=== PATIENT | female | born 1985 | race Caucasian/White ===

== ENCOUNTER 2018-01-08 10:18 | Emergency (ER) | payer MEDICAID ==
[~2018-01-08] VITALS: Ht 172.7 cm; Wt 123.8 kg
[2018-01-08] MEDS ORDERED: SODIUM CHLORIDE 0.9% 1,000 ML IV ONE (11:36)
[2018-01-08] MEDS ORDERED: SODIUM CHLORIDE 0.9% 1,000ML IVBOLUS ONE (12:00)
[2018-01-08] MEDS ORDERED: HYDROmorphone 2 MG/ML, 1ML IVPush PRN (12:00)
[2018-01-08] MEDS ORDERED: ONDANSETRON 2MG/ML, 2ML IVPush ONE (12:00)
[2018-01-08] MEDS ORDERED: SODIUM CHLORIDE FLUSH 10ML SYR IVF ONE (12:00)
[2018-01-08 12:06] LABS: MICROSCOPIC AUTO
[2018-01-08 12:07] LABS: CULTURE INDICATED? NO
[2018-01-08 12:13] LABS: BASOPHILS # (AUTO) 0.03 x10^3/uL (0-0.1); BASOPHILS % (AUTO) 0 % (0-1); EOSINOPHILS # (AUTO) 0.13 x10^3/uL (0-0.4); EOSINOPHILS % (AUTO) 2 % (1-7); LYMPHOCYTES # (AUTO) 1.45 x10^3/uL (1-3.4); LYMPHOCYTES % (AUTO) 23 % (22-44); MD NO; MEAN CORPUSCULAR HEMOGLOBIN 29.6 pg (27.0-34.8); MEAN CORPUSCULAR VOLUME 89.5 fL (80-100); MEAN PLATELET VOLUME 8.7 fL (7.4-10.4); MONOCYTES # (AUTO) 0.35 x10^3/uL (0.2-0.8); MONOCYTES % (AUTO) 6 % (2-9); NEUTROPHILS # (AUTO) 4.25 x10^3/uL (1.8-6.8); NEUTROPHILS % (AUTO) 69 % (42-75); PLATELET COUNT 260 x10^3/uL (130-400); RED BLOOD COUNT 4.57 x10^6/uL (3.82-5.3); RED CELL DISTRIBUTION WIDTH 14.2 % (9.6-15.2)
[2018-01-08] MEDS ORDERED: HYDROmorphone 2 MG/ML, 1ML ONE (12:17)
[2018-01-08] MEDS ORDERED: ONDANSETRON 2MG/ML, 2ML ONE (12:17)
[2018-01-08 12:21] LABS: ACETONE, SERUM Negative (Negative)
[2018-01-08 12:23] LABS: ALANINE AMINOTRANSFERASE 22 U/L (12-78); ALBUMIN 3.5 g/dL (3.4-5.0); ANION GAP 5 mmol/L (5-15); CALCIUM 8.7 mg/dL (8.5-10.1); CHLORIDE 110 mmol/L (98-107); CREATININE 0.59 mg/dL (0.55-1.02)
[2018-01-08 12:25] LABS: ALKALINE PHOSPHATASE 84 U/L (45-117); BILIRUBIN,TOTAL 0.6 mg/dL (0.2-1.0); TOTAL PROTEIN 7.3 g/dL (6.4-8.2)
[2018-01-08 13:37] VITALS: BP 98/64
== END 2018-01-08 13:41 | disposition home or self-care (01) ==
LOC: ED 13:35
DX: K52.9 Noninfective gastroenteritis and colitis, unspecified (principal); Z90.49 Acquired absence of other specified parts of digestive tract; Z98.890 Other specified postprocedural states; Z98.51 Tubal ligation status
CPT/HCPCS: 36415; 74021; 80053; 81001; 82010; 83690; 85025; 96361; 96374; 96375; 99284; J1170; J2405; J7030

== ENCOUNTER 2018-08-03 12:43 | Emergency (ER) | payer SELFPAY ==
[~2018-08-03] VITALS: Ht 172.7 cm; Wt 114.1 kg
--- NOTE | 2018-08-03 13:11 | NUR ---
CT WAITING ON IV TO PERFORM EXAM.
[2018-08-03 13:30] LABS: BASOPHILS % (AUTO) 0 % (0-1); EOSINOPHILS # (AUTO) 0.44 x10^3/uL (0-0.4); EOSINOPHILS % (AUTO) 5 % (1-7); LYMPHOCYTES # (AUTO) 1.62 x10^3/uL (1-3.4); LYMPHOCYTES % (AUTO) 17 % (22-44); MD NO; MEAN CORPUSCULAR HEMOGLOBIN 31.1 pg (27.0-34.8); MEAN CORPUSCULAR HGB CONC 33.3 g/dL (32.4-35.8); MEAN CORPUSCULAR VOLUME 93.5 fL (80-100); MEAN PLATELET VOLUME 9.9 fL (7.4-10.4); MONOCYTES # (AUTO) 0.17 x10^3/uL (0.2-0.8); MONOCYTES % (AUTO) 2 % (2-9); NEUTROPHILS # (AUTO) 7.18 x10^3/uL (1.8-6.8); NEUTROPHILS % (AUTO) 76 % (42-75); PLATELET COUNT 246 x10^3/uL (130-400); RED BLOOD COUNT 4.81 x10^6/uL (3.82-5.3); RED CELL DISTRIBUTION WIDTH 13.7 % (9.6-15.2)
[2018-08-03 13:32] LABS: ALANINE AMINOTRANSFERASE 21 U/L (12-78); ALBUMIN 3.4 g/dL (3.4-5.0); ANION GAP 4 mmol/L (5-15); CALCIUM 8.9 mg/dL (8.5-10.1); CHLORIDE 113 mmol/L (98-107); CREATININE 0.61 mg/dL (0.55-1.02)
[2018-08-03 13:36] LABS: ALKALINE PHOSPHATASE 80 U/L (45-117); BILIRUBIN,TOTAL 0.4 mg/dL (0.2-1.0); TOTAL PROTEIN 7.1 g/dL (6.4-8.2)
[2018-08-03] MEDS ORDERED: SODIUM CHLORIDE 0.9% 1,000 ML IV ONE (14:22)
--- NOTE | 2018-08-03 14:22 | NUR ---
PT TO ED FOR RIGHT SIDED ABD PAIN X3 DAYS WITH ASSOCIATED N/V. CONNECTED TO MONITORS. VSS. EDMD PRESENT FOR ASSESSMENT. AWAITING ORDERS.
[2018-08-03] MEDS ORDERED: HYDROmorphone 2 MG/ML, 1ML IVPush PRN (14:30)
[2018-08-03] MEDS ORDERED: SODIUM CHLORIDE FLUSH 10ML SYR IVF ONE (14:30)
[2018-08-03] MEDS ORDERED: SODIUM CHLORIDE 0.9% 1,000ML IVBOLUS ONE (14:30)
[2018-08-03] MEDS ORDERED: ONDANSETRON 2MG/ML, 2ML IVPush ONE (14:30)
[2018-08-03] MEDS ORDERED: ONDANSETRON 2MG/ML, 2ML ONE (14:36)
[2018-08-03] MEDS ORDERED: HYDROmorphone 1 MG/ML, 1ML VIAL ONE (14:36)
--- NOTE | 2018-08-03 14:40 | NUR ---
iv established. pt medicated per apr. vss. pt to ct at this time.
[2018-08-03 14:45] LABS: CULTURE INDICATED? YES; MICROSCOPIC INDICATED
[2018-08-03] MEDS ORDERED: OMNIPAQUE 350 MG/ML, 100ML BOTTLE ONE (15:00)
[2018-08-03] MEDS ORDERED: PROMETHAZINE 25 MG/ML, 1ML ONE (15:26)
[2018-08-03] MEDS ORDERED: PROMETHAZINE 25 MG/ML, 1ML IM ONE (15:30)
[2018-08-03 15:32] VITALS: BP 105/58
--- NOTE | 2018-08-03 15:33 | NUR ---
pt medicated per mar for nausea. vss. all results back at this time. chart up for recheck.
== END 2018-08-03 15:49 | disposition home or self-care (01) ==
LOC: ED 15:27
DX: K52.9 Noninfective gastroenteritis and colitis, unspecified (principal); N30.00 Acute cystitis without hematuria; F17.210 Nicotine dependence, cigarettes, uncomplicated; Z90.49 Acquired absence of other specified parts of digestive tract
CPT/HCPCS: 36415; 74177; 80053; 81001; 84703; 85025; 87086; 87147; 96361; 96372; 96374; 96375; 99284; J1170; J2405; J2550; J7030; Q9967

== ENCOUNTER 2018-08-27 07:25 | Emergency (ER) | payer SELFPAY ==
[~2018-08-27] VITALS: Ht 172.7 cm; Wt 115.3 kg
--- NOTE | 2018-08-27 07:46 | NUR ---
PT HAS CO OF SUNBURN OF LOWER LEGS W BLISTERS. PT STATES " I HAVE BEEN PASSING OUT AND VOMITING, DIARREHEA. I CANT KEEP ANYTHING DOWN SINCE YESTERDAY"
[2018-08-27] MEDS ORDERED: SODIUM CHLORIDE FLUSH 10ML SYR IVF ONE (08:00)
[2018-08-27] MEDS ORDERED: FAMOTIDINE 20 MG/2 ML IVP ONE (08:00)
[2018-08-27] MEDS ORDERED: ONDANSETRON 2MG/ML, 2ML IVPush ONE ×2 (08:00→11:00)
[2018-08-27] MEDS ORDERED: SODIUM CHLORIDE 0.9% 1,000ML IVBOLUS ONE (08:00)
[2018-08-27 08:08] LABS: BASOPHILS # (AUTO) 0.06 x10^3/uL (0-0.1); BASOPHILS % (AUTO) 1 % (0-1); EOSINOPHILS # (AUTO) 0.28 x10^3/uL (0-0.4); EOSINOPHILS % (AUTO) 3 % (1-7); LYMPHOCYTES # (AUTO) 1.39 x10^3/uL (1-3.4); LYMPHOCYTES % (AUTO) 13 % (22-44); MD NO; MEAN CORPUSCULAR HEMOGLOBIN 30.5 pg (27.0-34.8); MEAN CORPUSCULAR HGB CONC 32.9 g/dL (32.4-35.8); MEAN CORPUSCULAR VOLUME 92.8 fL (80-100); MEAN PLATELET VOLUME 8.8 fL (7.4-10.4); MONOCYTES # (AUTO) 0.74 x10^3/uL (0.2-0.8); MONOCYTES % (AUTO) 7 % (2-9); NEUTROPHILS # (AUTO) 8.12 x10^3/uL (1.8-6.8); NEUTROPHILS % (AUTO) 77 % (42-75); PLATELET COUNT 215 x10^3/uL (130-400); RED BLOOD COUNT 5.17 x10^6/uL (3.82-5.3); RED CELL DISTRIBUTION WIDTH 14.6 % (9.6-15.2)
[2018-08-27] MEDS ORDERED: ONDANSETRON 2MG/ML, 2ML ONE ×2 (08:18→10:44)
[2018-08-27] MEDS ORDERED: FAMOTIDINE 20 MG/2 ML ONE (08:18)
[2018-08-27 08:21] LABS: ALANINE AMINOTRANSFERASE 34 U/L (12-78); ALBUMIN 3.3 g/dL (3.4-5.0); ANION GAP 9 mmol/L (5-15); CALCIUM 8.7 mg/dL (8.5-10.1); CHLORIDE 108 mmol/L (98-107)
[2018-08-27 08:26] LABS: ALKALINE PHOSPHATASE 82 U/L (45-117); TOTAL PROTEIN 7.3 g/dL (6.4-8.2)
--- NOTE | 2018-08-27 09:14 | NUR ---
PT REQUESTING PAIN MEDICATION FOR SUNBURN
[2018-08-27] MEDS ORDERED: HYDROmorphone 2 MG/ML, 1ML ONE (09:24)
[2018-08-27] MEDS ORDERED: HYDROmorphone 2 MG/ML, 1ML IVPush PRN (09:30)
[2018-08-27 09:32] VITALS: BP 108/69
--- NOTE | 2018-08-27 11:16 | NUR ---
Patient given discharge instructions and they have confirmed that they understand the instructions. Patient ambulatory with steady gait.
--- NOTE | 2018-08-27 11:17 | NUR ---
PT STATES HER PAIN IS 4/10, NAUSEA IS BETTER.
== END 2018-08-27 11:31 | disposition home or self-care (01) ==
LOC: ED 09:22
DX: R55 Syncope and collapse (principal); R11.2 Nausea with vomiting, unspecified; T24.212A Burn of second degree of left thigh, initial encounter; T31.0 Burns involving less than 10% of body surface; T24.122A Burn of first degree of left knee, initial encounter; T24.121A Burn of first degree of right knee, initial encounter; T24.111A Burn of first degree of right thigh, initial encounter; T21.11XA Burn of first degree of chest wall, initial encounter; T31.20 Burns involving 20-29% of body surface with 0% to 9% third degree burns; X08.8XXA Exposure to other specified smoke, fire and flames, initial encounter; Y93.89 Activity, other specified; Y92.89 Other specified places as the place of occurrence of the external cause; Y99.8 Other external cause status
CPT/HCPCS: 36415; 71045; 80053; 84703; 85025; 93005; 96361; 96374; 96375; 96376; 99284; J1170; J2405; J3490; J7030

== ENCOUNTER 2020-04-12 08:27 | Emergency (ER) | payer MEDICAID ==
[~2020-04-12] VITALS: Ht 172.7 cm; Wt 122.6 kg
--- NOTE | 2020-04-12 08:33 | NUR ---
assistant technician: EKG done in triage
--- NOTE | 2020-04-12 08:49 | NUR ---
PT STATES SHE HAS HAD EPIGASTRIC PAIN FOR 3 DAYS WITH VOMITING. PT BELIEVES IT IS PANCREATITIS STATING SHE GETS IT 3 TIMES A YEAR
[2020-04-12] MEDS ORDERED: ONDANSETRON 2MG/ML, 2ML IVPush ONE (09:30)
[2020-04-12] MEDS ORDERED: SODIUM CHLORIDE 0.9% 1,000ML IVBOLUS ONE (09:30)
[2020-04-12] MEDS ORDERED: HYDROmorphone 1 MG/ML, 1ML INJ IV ONE (09:30)
[2020-04-12] MEDS ORDERED: SODIUM CHLORIDE FLUSH 10ML SYR IVF ONE (09:30)
[2020-04-12] MEDS ORDERED: HYDROmorphone 1 MG/ML, 1ML INJ ONE ×2 (09:35→10:35)
[2020-04-12] MEDS ORDERED: ONDANSETRON 2MG/ML, 2ML ONE (09:35)
--- NOTE | 2020-04-12 09:38 | NUR ---
break rn: pain 8/10 bilateral upper quadrant. medicated for pain. ultrasound in progress
[2020-04-12 09:55] LABS: BASOPHILS % (AUTO) 1 % (0-1); EOSINOPHILS % (AUTO) 3 % (1-7); LYMPHOCYTES % (AUTO) 24 % (22-44); MEAN CORPUSCULAR HGB CONC 33.8 g/dL (32.4-35.8); MEAN PLATELET VOLUME 9.4 fL (7.4-10.4); MONOCYTES % (AUTO) 6 % (2-9); NEUTROPHILS % (AUTO) 65 % (42-75); PLATELET COUNT 226 x10^3/uL (130-400); RED CELL DISTRIBUTION WIDTH 13.8 % (9.6-15.2)
[2020-04-12 09:58] LABS: ALBUMIN 3.3 g/dL (3.4-5.0); ANION GAP 5 mmol/L (5-15); CALCIUM 8.4 mg/dL (8.5-10.1); CHLORIDE 113 mmol/L (98-107)
[2020-04-12 09:59] LABS: MD NO
[2020-04-12 10:03] LABS: ALANINE AMINOTRANSFERASE 25 U/L (12-78); ALKALINE PHOSPHATASE 68 U/L (45-117); BILIRUBIN,TOTAL 0.5 mg/dL (0.2-1.0); CREATININE 0.57 mg/dL (0.55-1.02); TOTAL PROTEIN 6.5 g/dL (6.4-8.2)
--- NOTE | 2020-04-12 10:27 | NUR ---
ULTRASOUND COMPLETED. PT CONTINUES TO HAVE ABDOMINAL PAIN DESPITE BEING MEDICATED
[2020-04-12] MEDS ORDERED: HYDROmorphone 2 MG/ML, 1ML IVPush ONE (10:30)
[2020-04-12 11:08] VITALS: BP 126/64
--- NOTE | 2020-04-12 11:09 | NUR ---
SOME RELIEF WITH SECOND DOSE OF IV PAIN MEDS. TO GLASS ENAMEL MIXER PT. DISCHARGE INSTRUCTIONS GIVEN AND AMBULATED TO DISCHARGE WINDOW STEADY GAIT
== END 2020-04-12 11:13 | disposition home or self-care (01) ==
LOC: ED 08:46
DX: R10.13 Epigastric pain (principal); R11.2 Nausea with vomiting, unspecified; R19.7 Diarrhea, unspecified; E66.9 Obesity, unspecified; Z68.41 Body mass index [BMI] 40.0-44.9, adult; Z90.49 Acquired absence of other specified parts of digestive tract; Z98.51 Tubal ligation status; Z79.899 Other long term (current) drug therapy
CPT/HCPCS: 36415; 76700; 80053; 83690; 84703; 85025; 93005; 96361; 96374; 96375; 96376; 99285; J1170; J2405; J7030

== ENCOUNTER 2020-08-23 08:52 | Inpatient (IN) | payer MEDICAID ==
[~2020-08-23] VITALS: Ht 172.7 cm; Wt 116.5 kg
--- NOTE | 2020-08-23 09:32 | NUR ---
Hx of acute pancreatitis. N/V/D starting last night, reports pain in upper abd. "I'm pretty sure it's my pancreas." appears well. vss will defer piv until erp assess
[2020-08-23] MEDS ORDERED: ONDANSETRON 2MG/ML, 2ML ONE (09:56)
[2020-08-23] MEDS ORDERED: HYDROmorphone 1 MG/ML, 1ML INJ ONE ×3 (09:56→13:06)
[2020-08-23] MEDS ORDERED: ONDANSETRON 2MG/ML, 2ML IVPush ONE (10:00)
[2020-08-23] MEDS ORDERED: SODIUM CHLORIDE FLUSH 10ML SYR IVF ONE (10:00)
[2020-08-23] MEDS ORDERED: HYDROmorphone 1 MG/ML, 1ML INJ IV ONE ×3 (10:00→12:30)
[2020-08-23] MEDS ORDERED: SODIUM CHLORIDE 0.9% 1,000ML IVBOLUS ONE (10:00)
--- NOTE | 2020-08-23 10:17 | NUR ---
PIV PLACED-MEDICATED PER EMAR FOR EPIGASTRIC PAIN AT 09/20
[2020-08-23 10:55] LABS: BASOPHILS % (AUTO) 1 % (0-1); EOSINOPHILS % (AUTO) 2 % (1-7); LYMPHOCYTES % (AUTO) 16 % (22-44); MEAN CORPUSCULAR HEMOGLOBIN 31.9 pg (27.0-34.8); MEAN CORPUSCULAR HGB CONC 34.4 g/dL (32.4-35.8); MEAN PLATELET VOLUME 9.5 fL (7.4-10.4); MONOCYTES % (AUTO) 7 % (2-9); NEUTROPHILS % (AUTO) 75 % (42-75); PLATELET COUNT 276 x10^3/uL (130-400); RED BLOOD COUNT 4.93 x10^6/uL (3.82-5.3); RED CELL DISTRIBUTION WIDTH 13.5 % (9.6-15.2)
[2020-08-23 10:59] LABS: ALANINE AMINOTRANSFERASE 32 U/L (12-78); ALBUMIN 3.7 g/dL (3.4-5.0); CALCIUM 9.2 mg/dL (8.5-10.1); CHLORIDE 109 mmol/L (98-107); CREATININE 0.72 mg/dL (0.55-1.02)
[2020-08-23 11:09] LABS: ANION GAP 3 mmol/L (5-15)
[2020-08-23 11:10] LABS: ALKALINE PHOSPHATASE 72 U/L (45-117); BILIRUBIN,TOTAL 0.9 mg/dL (0.2-1.0); TOTAL PROTEIN 7.5 g/dL (6.4-8.2)
--- NOTE | 2020-08-23 11:12 | NUR ---
ALL TESTING RESULTED-PLACED UP FOR RECHECK PATIENT REPORTS PAIN ONLY SLIGHT IMPROVED 7/10. HOWEVER PAIN APPEARS MUCH MORE COMFORTABLE (SLEEPING OR USING PHONE, ETC)
[2020-08-23] MEDS ORDERED: SODIUM CHLORIDE 0.9% 1,000 ML IV ONE (11:30)
--- NOTE | 2020-08-23 11:44 | NUR ---
medicated per emar with 2nd dose of pain meds and 2nd liter of ns
[2020-08-23] MEDS ORDERED: BACL-19 PO (12:14)
[2020-08-23] MEDS ORDERED: ALPR1TAB2 PO (12:14)
[2020-08-23] MEDS ORDERED: NAPR-856 PO (12:14)
[2020-08-23] MEDS ORDERED: PROCHLORPERAZINE 5 MG/ML, 2ML ONE (13:05)
--- NOTE | 2020-08-23 13:14 | NUR ---
remedicated for continued pain/nausea
[2020-08-23] MEDS ORDERED: LACTATED RINGERS 1,000 ML IV SCH (13:30)
[2020-08-23] MEDS ORDERED: POLYETHYLENE GLYCOL 17 GM PACKET PO PRN (13:30)
[2020-08-23] MEDS ORDERED: SENNA/DOCUSATE TABLET PO PRN (13:30)
[2020-08-23] MEDS ORDERED: PROMETHAZINE 25 MG/ML, 1ML IM PRN (13:30)
[2020-08-23] MEDS ORDERED: PROCHLORPERAZINE 5 MG/ML, 2ML IVPush ONE (13:30)
[2020-08-23] MEDS ORDERED: ACETAMINOPHEN 325 MG TABLET PO PRN (13:30)
--- NOTE | 2020-08-23 13:57 | NUR ---
ULTRASOUND AT BEDSIDE FOR ABD EXAM
[2020-08-23] MEDS ORDERED: ALPRazolam 1MG TAB PO PRN (14:00)
[2020-08-23] MEDS ORDERED: PROCHLORPERAZINE 5 MG/ML, 2ML IV PRN (14:00)
[2020-08-23] MEDS ORDERED: NAPROXEN 500 MG TABLET PO PRN (14:00)
[2020-08-23] MEDS ORDERED: ENOXAPARIN 40 MG/0.4 ML SQ SCH (14:30)
[2020-08-23] MEDS: HYDROmorphone 1 MG/ML, 1ML INJ IVPush PRN ×2 (14:46→19:28)
[2020-08-23 15:59] VITALS: BP 101/65
[2020-08-23 18:29] VITALS: BP 95/62
== END 2020-08-23 20:09 | disposition left against medical advice (07) | DRG 392 ==
LOC: ED 11:06 → EDIP 12:46 → 3N 14:03
PROVIDERS: ADMIT Emergency Medicine; ATTEND Emergency Medicine
DX: R10.9 Unspecified abdominal pain (principal); Z53.29 Procedure and treatment not carried out because of patient's decision for other reasons; F41.1 Generalized anxiety disorder; E66.9 Obesity, unspecified; Z90.49 Acquired absence of other specified parts of digestive tract; Z98.51 Tubal ligation status; Z79.899 Other long term (current) drug therapy; Z88.0 Allergy status to penicillin; Z88.5 Allergy status to narcotic agent; Z88.8 Allergy status to other drugs, medicaments and biological substances; Z88.6 Allergy status to analgesic agent; Z68.39 Body mass index [BMI] 39.0-39.9, adult
CPT/HCPCS: 36415; 76700; 80053; 83690; 85025; 96361; 96374; G0378; J1170; J1650; J2405; J0780; J7030; J7120